=== PATIENT | male | born 1950 | race Hispanic/Latino ===

== ENCOUNTER 2017-07-30 08:52 | Emergency (ER) | payer MEDICARE, MEDICAID ==
[2017-07-30 08:52] VITALS: BMI 33.6
[2017-07-30 09:22] VITALS: O2SAT 98
[2017-07-30] MEDS ORDERED: Fluorescein 1 mg Ophthalmic Strip ONE (10:20)
[2017-07-30] MEDS ORDERED: Tetracaine 0.5% Ophth (OR ONLY) ONE (10:20)
--- NOTE | 2017-07-30 10:23 | C.PDOC ---
History Of Present Illness 67 year old male presents to the ED for evaluation of right eye pain associated with discharge which began 3 days ago. Patient is unsure about possibility of foreign body in his eye. Patient denies fever, chills, trauma, vision changes, swelling, or history of contact lens use. Time Seen by Provider: 07/30/17 09:47 Chief Complaint (Nursing): Eye Problem History Per: Patient History/Exam Limitations: no limitations Onset/Duration Of Symptoms: Days (3) Current Symptoms Are (Timing): Worse Injury To Eye?: No Quality: "Pain" Wears Contact Lens?: No Associated Symptoms: Pain, Discharge From Eye. denies: Decreased Vision, Swelling Additional History Per: Patient Past Medical History Reviewed: Historical Data, Nursing Documentation, Vital Signs Vital Signs: Last Vital Signs Temp 98.0 F 07/30/17 11:19 Pulse 67 07/30/17 11:19 Resp 18 07/30/17 11:19 BP 152/89 H 07/30/17 11:19 Pulse Ox 98 07/30/17 11:19 - Medical History PMH: Gastritis, HTN Surgical History: No Surg Hx - [facility] Procedures DIPHTHERIA TOXOID ADMIN (08/17/13) TETANUS TOXOID ADMINIST (08/17/13) Family History: States: Unknown Family Hx - Social History Hx Alcohol Use: No Hx Substance Use: No - Immunization History Hx Tetanus Toxoid Vaccination: No Hx Influenza Vaccination: No Hx Pneumococcal Vaccination: No Review Of Systems Constitutional: Negative for: Fever, Chills Eyes: Positive for: Pain (right, associated with discharge). Negative for: Vision Change Physical Exam - Physical Exam Appears: Non-toxic, No Acute Distress Skin: Normal Color, Warm, Dry Head: Atraumatic, Normacephalic, No Swelling (periorbital) Eye(s): bilateral: PERRL, EOMI, right: Other (conjunctival injection with scant amount of clear yellow discharge. ), left: Normal Inspection Oral Mucosa: Moist Neck: Supple Extremity: Normal ROM Neurological/Psych: Oriented x3, Normal Speech, Normal Cognition Gait: Steady ED Course And Treatment O2 Sat by Pulse Oximetry: 98 (on RA) Pulse Ox Interpretation: Normal Progress Note: Fluoroscein test was performed and was (+) at the 6 o'clock position. Disposition - Disposition Referrals: Mikel Ramos MD [Staff Provider] - Disposition: HOME/ ROUTINE Disposition Time: 10:55 Condition: GOOD Additional Instructions: Follow up with the Eye doctor within 1-2 days without fail. Return if worsened. Prescriptions: Erythromycin 0.5% [Ilytocin] 1 appful OD TID #1 tube Instructions: Corneal Abrasion (ED) Forms: [employer] (Kiswahili) Print Language: EGYPTIAN - Clinical Impression Clinical Impression: Corneal abrasion - PA / COLD PATCHER / Resident Statement MD/DO has reviewed & agrees with the documentation as recorded. - Scribe Statement The provider has reviewed the documentation as recorded by the Scribe (Melissa Morgan) All medical record entries made by the Scribe were at my direction and personally dictated by me. I have reviewed the chart and agree that the record accurately reflects my personal performance of the history, physical exam, medical decision making, and the department course for this patient. I have also personally directed, reviewed, and agree with the discharge instructions and disposition.
[2017-07-30] MEDS ORDERED: Erythromycin 0.5% Ophth Oint 1 APPLIC/3.5 G OD STA (10:54)
[2017-07-30] MEDS ORDERED: Erythromycin 0.5% Ophth Oint 1 APPLIC/3.5 G ONE (11:11)
[2017-07-30 11:21] VITALS: BP 152/89; PULSE 67; RESP 18; TEMP 98
== END 2017-07-30 11:20 | disposition home or self-care (01) ==
LOC: C.ER 08:52
DX: S05.01XA Injury of conjunctiva and corneal abrasion without foreign body, right eye, initial encounter (principal); X58.XXXA Exposure to other specified factors, initial encounter; I10 Essential (primary) hypertension

== ENCOUNTER 2017-09-01 09:46 | Emergency (ER) | payer MEDICARE ==
[2017-09-01 09:46] VITALS: BMI 33.6
[2017-09-01 09:56] VITALS: BP 130/78; PULSE 75; RESP 18; TEMP 97.6; O2SAT 99
--- NOTE | 2017-09-01 10:03 | C.PDOC ---
History Of Present Illness 67M c/o nasal congestion and "itchy" throat for several days. he denies any cough, fever, or any other symptoms. he has not taken any medications for his symptoms. denies sig pmh. Time Seen by Provider: 09/01/17 09:57 Chief Complaint (Nursing): Cough, Cold, Congestion Past Medical History Vital Signs: Last Vital Signs Temp 97.6 F 09/01/17 09:54 Pulse 75 09/01/17 09:54 Resp 18 09/01/17 09:54 BP 130/78 09/01/17 09:54 Pulse Ox 99 09/01/17 10:02 - Medical History PMH: Gastritis, HTN - [facility] Procedures DIPHTHERIA TOXOID ADMIN (08/17/13) TETANUS TOXOID ADMINIST (08/17/13) Family History: States: Other Other Family History: nc - Social History Hx Alcohol Use: No Hx Substance Use: No - Immunization History Hx Tetanus Toxoid Vaccination: No Hx Influenza Vaccination: No Hx Pneumococcal Vaccination: No Review Of Systems Constitutional: Negative for: Fever, Chills, Weakness, Malaise ENT: Positive for: Nose Discharge, Nose Congestion. Negative for: Nose Pain, Mouth Swelling, Throat Pain, Throat Swelling Cardiovascular: Negative for: Chest Pain Respiratory: Negative for: Cough, Shortness of Breath Gastrointestinal: Negative for: Nausea, Vomiting Neurological: Negative for: Headache Physical Exam - Physical Exam Appears: Well, Non-toxic, No Acute Distress Skin: Warm, Dry Eye(s): bilateral: PERRL Nose: No Epistaxis Oral Mucosa: Moist Tongue: No Swelling Lips: No Swelling Throat: Erythema, No Exudate, No Drooling, No Mass Neck: Normal ROM, Supple Cardiovascular: Rhythm Regular Respiratory: No Decreased Breath Sounds, No Accessory Muscle Use, No Rales, No Rhonchi, No Stridor, No Wheezing Neurological/Psych: Oriented x3 ED Course And Treatment O2 Sat by Pulse Oximetry: 99 Disposition - Disposition Referrals: [facility] [Outside] Disposition: HOME/ ROUTINE Disposition Time: 10:02 Condition: STABLE Additional Instructions: Please follow up with your doctor. Return to the ER for any worsening symptoms or for any other concerns. Prescriptions: Guaifen/Phenyleph/Acetaminophn [Tylenol Cold Head Congest Cplt] 1 - 2 each PO Q6 PRN #20 tablet PRN Reason: cold symptoms Instructions: Upper Respiratory Infection (ED) Forms: [facility] (North Korean), Gen Discharge Inst Romansh Print Language: HUNGARIAN - Clinical Impression Clinical Impression: Upper respiratory infection
== END 2017-09-01 10:19 | disposition home or self-care (01) ==
LOC: C.ER 09:46
DX: J06.9 Acute upper respiratory infection, unspecified (principal)

== ENCOUNTER 2017-09-22 12:13 | Emergency (ER) | payer MEDICAID, MEDICARE ==
[2017-09-22 12:14] VITALS: BMI 33.6
[2017-09-22 12:29] VITALS: TEMP 97.2
--- NOTE | 2017-09-22 13:35 | C.PDOC ---
History Of Present Illness 67 y/o male c/o 1 week of 'gassy feeling' in stomach with pain that radiates to both side of rib cage. pt denies chest pain, sob, cough, fever, chills, nausea , vomiting, diarrhea. denies any urinary symptoms. no change in appetite. 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 ) Onset/Duration Of Symptoms: Days (7) Current Symptoms Are (Timing): Still Present Severity: Moderate Location Of Pain/Discomfort: Epigastric Radiation Of Pain To:: None Quality Of Discomfort: Burning, Gas Associated Symptoms: denies: Fever, Chills, Nausea, Vomiting, Diarrhea, Loss Of Appetite, Back Pain, Chest Pain, Constipation, Urinary Symptoms Exacerbating Factors: Food Alleviating Factors: None Last Bowel Movement: Yesterday Recent travel outside of the [place]: No Past Medical History Reviewed: Historical Data, Nursing Documentation, Vital Signs Vital Signs: Last Vital Signs Temp 97.2 F L 09/22/17 12:25 Pulse 68 09/22/17 15:19 Resp 20 09/22/17 15:19 BP 140/75 09/22/17 15:19 Pulse Ox 99 09/22/17 20:59 - Medical History PMH: Gastritis, HTN - [facility] Procedures DIPHTHERIA TOXOID ADMIN (08/17/13) TETANUS TOXOID ADMINIST (08/17/13) Family History: States: Unknown Family Hx - Social History Hx Alcohol Use: No Hx Substance Use: No - Immunization History Hx Tetanus Toxoid Vaccination: No Hx Influenza Vaccination: No Hx Pneumococcal Vaccination: No Review Of Systems Constitutional: Negative for: Fever, Chills Cardiovascular: Negative for: Chest Pain, Palpitations, Light Headedness Respiratory: Negative for: Cough, Shortness of Breath, Sputum Gastrointestinal: Positive for: Abdominal Pain. Negative for: Nausea, Vomiting , Diarrhea, Constipation Genitourinary: Negative for: Dysuria, Frequency Skin: Negative for: Rash Neurological: Negative for: Weakness, Numbness Physical Exam - Physical Exam Appears: Non-toxic, No Acute Distress Skin: Normal Color, Warm, Dry Head: Atraumatic, Normacephalic Eye(s): bilateral: Normal Inspection, PERRL, EOMI Oral Mucosa: Moist Neck: Supple Chest: Symmetrical, No Deformity, No Tenderness Cardiovascular: Rhythm Regular, No Murmur Respiratory: Normal Breath Sounds, No Rales, No Rhonchi, No Wheezing Gastrointestinal/Abdominal: Bowel Sounds, Soft, Tenderness (mild epigastric tenderness), No Mass, No Distention, No Guarding, No Rebound Back: No CVA Tenderness, No Vertebral Tenderness Extremity: Pedal Edema, No Calf Tenderness Neurological/Psych: Oriented x3, Normal Speech, Normal Cognition, Normal Motor, Normal Sensation ED Course And Treatment - Laboratory Results Result Diagrams: 09/22/17 13:56 09/22/17 13:56 ECG Rhythm: Sinus Rhythm ECG Interpretation: Normal Rate From EC O2 Sat by Pulse Oximetry: 99 Medical Decision Making Medical Decision Makin67 y/o male. poor historian, with no significant pmh c/o 1 week of vague epigastric gassy pain; will get ;abs, inc trop and ekg, give pepcid and re- eval. pt feeling much better after Pepcid, has normal labs, neg troponin, normal ekg, will d/c with pepcid, pmd f/u. pt later reports he has been told he has gastritis/reflux, but doesn't take any medication for it. Disposition Counseled Patient/Family Regarding: Studies Performed, Diagnosis, Need For Followup, Rx Given - Disposition Referrals: [facility] [Outside] Disposition: HOME/ ROUTINE Disposition Time: 15:02 Condition: STABLE Additional Instructions: Por favor, tome Pepcid justin vez al da segn las indicaciones. Seguimiento en la clnica mdica la prxima semana. Espere 3 horas despus de comer antes de acostarse. Evite alimentos gaseosos sarah frijoles, brcoli, coliflor, repollo. Regrese a la camelia de emergencias por cualquier empeoramiento de los sntomas. Please take Pepcid once a day as directed. Follow up in medical clinic next week. Please wait 3 hours after eating before lying down. Avoid gassy foods like beans, broccoli, cauliflower, cabbage. Return to ER for any worsening symptoms. Prescriptions: Famotidine [Pepcid] 20 mg PO DAILY #30 tab Instructions: Diet for Ulcers and Gastritis (ED), Gastroesophageal Reflux Disease (ED) Forms: Gen Discharge Inst Samoan, General Discharge Instructions Print Language: WOLOF - Clinical Impression Clinical Impression: Gastritis
[2017-09-22 14:06] LABS: BASO % 0.6 % (0.0-2.0); EOS # 0.6 K/uL (0.0-0.7); EOS % 8.7 % (0.0-4.0); HEMATOCRIT 42.5 % (35.0-51.0); LYMPH # 1.6 K/uL (1.0-4.3); LYMPH % 22.4 % (20.0-40.0); MEAN CELL VOLUME 91.8 fL (80.0-94.0); MEAN CORPUSCULAR HEMOGLOBIN 31.7 pg (27.0-31.0); MEAN CORPUSCULAR HGB CONC 34.5 g/dL (33.0-37.0); MEAN PLATELET VOLUME 8.1 fL (7.2-11.7); MONO # 0.5 K/uL (0.0-0.8); MONO % 7.4 % (0.0-10.0); NRBC % 0.1 % (0.0-2.0); RED CELL DISTRIBUTION WIDTH 13.5 % (11.5-14.5); WHITE BLOOD COUNT 7.2 K/uL (4.8-10.8)
[2017-09-22 14:14] LABS: ALB/GLOB RATIO 1.2 (1.0-2.1); ALKALINE PHOSPHATASE 75 U/L (38-126); ALT/SGPT 45 U/L (21-72); AST/SGOT 26 U/L (17-59); BILIRUBIN,TOTAL 0.7 mg/dL (0.2-1.3); BLOOD UREA NITROGEN 18 mg/dL (9-20); CALCIUM 8.5 mg/dl (8.6-10.4); CARBON DIOXIDE 30 mmol/L (22-30); CHLORIDE 102 mmol/L (98-107); GFR AFRICAN-AMERICAN > 60; GLUCOSE,RANDOM 86 mg/dL (75-110); POTASSIUM 3.8 mmol/L (3.6-5.2); SODIUM 137 mmol/L (132-148); TOTAL PROTEIN 6.8 g/dL (6.3-8.3)
[2017-09-22 15:19] VITALS: BP 140/75; PULSE 68; RESP 20
[2017-09-22 20:29] VITALS: O2SAT 99
== END 2017-09-22 15:23 | disposition home or self-care (01) ==
LOC: C.ER 12:13
DX: K29.70 Gastritis, unspecified, without bleeding (principal); I10 Essential (primary) hypertension

== ENCOUNTER 2017-11-12 09:58 | Emergency (ER) | payer OTHER ==
[2017-11-12 09:58] VITALS: BMI 33.6
[2017-11-12 10:17] VITALS: RESP 18; O2SAT 98
--- NOTE | 2017-11-12 11:54 | C.PDOC ---
History Of Present Illness 67 y/o male presents to ED with complaints of headache, sore throat, weakness and body aches for 2 weeks and cough since yesterday. Patient denies fever, chills, nausea, vomiting or any other complaints at this time. Chief Complaint (Nursing): Cough, Cold, Congestion History Per: Patient History/Exam Limitations: no limitations Onset/Duration Of Symptoms: Days Current Symptoms Are (Timing): Still Present Associated Symptoms: Cough Past Medical History Reviewed: Historical Data, Nursing Documentation, Vital Signs Vital Signs: Last Vital Signs Temp 98 F 11/12/17 10:17 Pulse 85 11/12/17 10:17 Resp 18 11/12/17 10:17 BP 154/82 H 11/12/17 10:17 Pulse Ox 98 11/12/17 11:56 - Medical History PMH: Gastritis, HTN Surgical History: No Surg Hx - [facility] Procedures DIPHTHERIA TOXOID ADMIN (08/17/13) TETANUS TOXOID ADMINIST (08/17/13) Family History: States: No Known Family Hx - Social History Hx Alcohol Use: No Hx Substance Use: No - Immunization History Hx Tetanus Toxoid Vaccination: No Hx Influenza Vaccination: No Hx Pneumococcal Vaccination: No Review Of Systems Constitutional: Negative for: Fever, Chills Cardiovascular: Negative for: Chest Pain Respiratory: Positive for: Cough Skin: Negative for: Rash Neurological: Positive for: Weakness, Headache. Negative for: Numbness Physical Exam - Physical Exam Appears: Non-toxic, No Acute Distress Skin: Warm, Dry, No Rash Head: Atraumatic, Normacephalic Eye(s): bilateral: Normal Inspection Ear(s): Bilateral: Normal Oral Mucosa: Moist Throat: Normal, No Erythema, No Exudate Neck: Normal ROM, Supple Chest: Symmetrical Cardiovascular: Rhythm Regular Respiratory: Normal Breath Sounds, No Rales, No Rhonchi, No Wheezing Gastrointestinal/Abdominal: Soft, No Tenderness, No Guarding, No Rebound Neurological/Psych: Oriented x3 ED Course And Treatment O2 Sat by Pulse Oximetry: 98 (RA) Pulse Ox Interpretation: Normal Medical Decision Making Medical Decision Making: Impression: Influenza Test Disposition - Disposition Disposition: HOME/ ROUTINE Disposition Time: 12:49 Condition: FAIR Prescriptions: Azithromycin 250 mg PO DAILY #6 tablet Benzonatate [Tessalon Perles] 100 mg PO TID PRN #15 sgl PRN Reason: Cough Instructions: Upper Respiratory Infection (ED) Forms: [facility] (Nepalese) Print Language: SAUDI ARABIAN - Clinical Impression Clinical Impression: Bronchitis - Scribe Statement The provider has reviewed the documentation as recorded by the Lucasibpercy Hamilton All medical record entries made by the Lucasibpercy were at my direction and personally dictated by me. I have reviewed the chart and agree that the record accurately reflects my personal performance of the history, physical exam, medical decision making, and the department course for this patient. I have also personally directed, reviewed, and agree with the discharge instructions and disposition.
--- NOTE | 2017-11-12 12:29 | RAD ---
HISTORY: cough COMPARISON: Chest x-ray performed 11/01/16. TECHNIQUE: Chest PA and lateral FINDINGS: Examination limited by habitus and hypoinflation. LUNGS: No focal consolidation. Please note that chest x-ray has limited sensitivity for the detection of pulmonary masses. PLEURA: No significant pleural effusion identified. No definite pneumothorax . CARDIOVASCULAR: Heart size appears within normal limits. OSSEOUS STRUCTURES: Degenerative changes of the spine. VISUALIZED UPPER ABDOMEN: Unremarkable. OTHER FINDINGS: None. IMPRESSION: No focal consolidation, significant pleural effusion, or definite pneumothorax identified.
[2017-11-12 12:58] VITALS: BP 144/86; PULSE 64; TEMP 98.4
== END 2017-11-12 12:56 | disposition home or self-care (01) ==
LOC: C.ER 09:58
DX: J40 Bronchitis, not specified as acute or chronic (principal)